=== PATIENT | female | born 1950 | race Caucasian/White ===

== ENCOUNTER 2018-01-10 13:16 | Emergency (ER) ==
[2018-01-10 13:22] VITALS: BP 137/76; TEMP 99.5; BMI 46.6
--- NOTE | 2018-01-10 13:57 | DI ---
EXAM: Four views of the left knee HISTORY: Left knee pain post fall. COMPARISON: No right knee x-rays same day FINDINGS: Left knee arthroplasty hardware is in place. There is a small lateral osteophyte. There i s no displaced fracture or dislocation. There is no lytic or blastic lesion. Soft tissues are unrem arkable. IMPRESSION: Left knee arthroplasty hardware is intact without signs of fracture or loosening. There is no acute osseous abnormality.
--- NOTE | 2018-01-10 13:58 | DI ---
EXAM: Four views of the right knee HISTORY: Fall. COMPARISON: Left knee x-rays same day FINDINGS: Right knee arthroplasty hardware is in place. There is no signs of hardware fracture or lo osening. There is no displaced fracture. There is mild osteophyte formation throughout the right kn ee. Soft tissues are unremarkable. IMPRESSION: 1. Right arthroplasty hardware without evidence of hardware fracture or loosening. 2. Mild scattered osteoarthritis.
--- NOTE | 2018-01-10 13:58 | DI ---
Exam: Left ankle three-view. HISTORY: Fall. Findings/impressions: Three images of the left ankle demonstrate no acute fracture or dislocation. There is no osseous erosion or radiodense foreign body. There is moderate degenerative disease in th e mid foot. No focal soft tissue swelling is seen.
--- NOTE | 2018-01-10 14:33 | CT ---
EXAM: CT thoracic spine without contrast HISTORY: Fall COMPARISON: None TECHNIQUE: CT thoracic spine performed without intravenous contrast. Coronal and sagittal reformatt ed images obtained. FINDINGS: Vertebral bodies normal height. No fracture. No subluxation. Moderate multilevel chroni c discogenic degenerative disease with multilevel marginal osteophyte formation and intervertebral di sc space narrowing. Central canal grossly patent. Atherosclerosis. Granulomatous calcification. IMPRESSION: 1. No fracture or subluxation. 2. Chronic discogenic degenerative disease.
--- NOTE | 2018-01-10 14:33 | CT ---
EXAM: CT cervical spine without contrast. HISTORY: Fall COMPARISON: Same day CT thoracic spine TECHNIQUE: Serial axial images of the cervical spine were obtained from the skull base through the l gerda apices without contrast. These were viewed in multiple planes. FINDINGS: Evaluation is mildly limited due to artifact. There is moderate facet arthropathy. There is no acute compression fracture or subluxation. There is mild scattered disc space narrowing and s cattered disc osteophytes. The odontoid process is intact. The C1 ring is intact. Scattered facet a rthropathy and disc osteophytes demonstrate right C6-C7 mld neural foraminal narrowing. Soft tissues demonstrate a lobular enlarged appearance of the thyroid. IMPRESSION: 1. No acute compression fracture or subluxation. 2. 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 3. Lobular enlarged appearance of the thyroid.
--- NOTE | 2018-01-10 15:53 | ED.PDOC ---
General ED Provider: Dr. AICHA CLIFTON Chief Complaint: Hand Laceration Stated Complaint: hand laceration, neck and upper back pain after a fall Time Seen by Physician: 13:30 (see photos) Mode of Arrival: Walk-In Information Source: Patient Exam Limitations: No limitations Primary Care Provider: YANETH MOREAU Nursing and Triage Documentation Reviewed and Agree: Yes Does patient meet sepsis criteria?: No System Inflammatory Response Syndrome: Not Applicable Sepsis Protocol: For patient's 13 years and over: Temp is 96.8 and below OR 101 and greater Pulse >90 BPM Resp >20/minute Acutely Altered Mental Status Are patient's symptoms suggestive of a new infection, such as: -Pneumonia -Skin, Soft Tissue -Endocarditis -UTI -Bone, Joint Infection -Implantable Device -Acute Abdominal Infection -Wound Infection -Meningitis -Blood Stream Catheter Infection -Unknown Trauma/Injury Complaint Exam - Trauma Complaint/Exam Location of Pain or Injury: Reports: Back (thoracic), RLE (knee ), LLE (knee), Other (right hand ) Mechanism of Injury: Reports: Fall Onset/Duration: 1 week Symptoms Are: Still present Timing of Treatment: Delayed Initial Severity: Mild Current Severity: Mild Character: Reports: Aching Alleviating: Reports: Rest Associated Signs and Symptoms: Denies: LOC, Confusion, Memory loss, Lethargy, Vomiting, Bleeding, Bruising, Swelling, Extremity disuse, Painful respiration, Hoarseness, Dysphagia, Hemoptysis, Significant blood loss Related Surgical History: Reports: None Nexus Low Risk Criteria: No post-midline CS tender, No evidence of intoxicat., No Altered LOC, No focal neuro deficit, No distracting injuries Glascow Coma Scale (see protocol): 15 Compartment Syndrome Risk Factors: Absent: Pain, Paralysis, Pallor, Pulselessness, Paresthesias Skin Findings: Present: Laceration (see photos) Differential Diagnoses: Laceration Review of Systems - Review Of Systems Constitutional: Reports: No symptoms Eyes: Reports: No symptoms Ears, Nose, Mouth, Throat: Reports: No symptoms Respiratory: Reports: No symptoms Cardiac: Reports: No symptoms GI: Reports: No symptoms : Reports: No symptoms Musculoskeletal: Reports: Joint pain (right , left knee) Skin: Reports: Other (laceration right hand) Neurological: Reports: No symptoms Endocrine: Reports: No symptoms Hematologic/Lymphatic: Reports: No symptoms All Other Systems: Reviewed and Negative Past Medical History - Past Medical History Previously Healthy: Yes Endocrine: Reports: None Cardiovascular: Reports: None Respiratory: Reports: None Hematological: Reports: None Gastrointestinal: Reports: None Genitourinary: Reports: None Neuro/Psych: Reports: None Musculoskeletal: Reports: None Cancer: Reports: None Last Menstrual Period: NONE - Surgical History General Surgical History: Reports: None - Family History Family History: Reports: None - Social History Smoking Status: Current every day smoker, Light tobacco smoker Hx Substance Use: No Alcohol Screening: None - Immunizations Tetanus Shot up to Date: Yes Physical Exam - Physical Exam Appearance: Well-appearing, No pain distress, Well-nourished Eyes: SRIKANTH, EOMI, Conjunctiva clear ENT: Ears normal, Nose normal, Oropharynx normal Respiratory: Airway patent, Breath sounds clear, Breath sounds equal, Respirations nonlabored Cardiovascular: RRR, Pulses normal, No rub, No murmur GI/: Soft, Nontender, No masses, Bowel sounds normal, No Organomegaly Musculoskeletal: Normal strength, ROM intact, No edema, No calf tenderness Skin: Warm, Dry (laceration right hand ) Neurological: Sensation intact, Motor intact, Reflexes intact, Cranial nerves intact, Alert, Oriented Psychiatric: Affect appropriate, Mood appropriate Procedures - Laceration/Wound Repair No standard instances Wound Description: Linear Wound Length (cm): 2cm Wound Width: 5mm Wound Depth: 2mm Wound Explored: Clean Wound Prep: Saline, Hibiclens Anesthesia: Lidocaine (plain 5 cc) Undermining: Minimal Wound Margins: Revised, Vermilion border aligned Wound Repaired With: Sutures Suture Size and Type: 3 prolene Number of Sutures: 12 Number of Nathaly: 0 Critical Care Note - Critical Care Note Total Time (mins): 0 Course - Course Orders, Labs, Meds: Orders Category Date Time Status ANKLE, LEFT MIN 3 VIEWS Stat RADS 01/10/18 13:[address] CERVICAL SPINE W/O CONTRAST Stat RADS 01/10/18 13:[address] THORACIC SPINE W/O CONTRAST Stat RADS 01/10/18 13:28 Completed KNEE, LEFT 4 VIEWS Stat RADS 01/10/18 13:23 Completed KNEE, RIGHT 4 VIEWS Stat RADS 01/10/18 13:23 Completed Vital Signs: Temp Pulse Resp BP Pulse Ox 01/10/18 13:16 99.5 F 90 20 137/76 92 L Departure - Departure Time of Disposition: 15:56 Disposition: HOME SELF-CARE Discharge Problem: Laceration of hand Instructions: Care For Your Stitches (DC), Laceration (ED), Laceration (DC) Condition: Good Pt referred to PMD for follow-up: Yes IPMP verified?: No Additional Instructions: Please call your Family Physician as soon as possible to schedule a follow-up appointment. Allergies/Adverse Reactions: Allergies codeine Adverse Reaction (Verified 01/10/18 13:25) levofloxacin [From Levaquin] Adverse Reaction (Verified 01/10/18 13:24) DERMABOND Adverse Reaction (Uncoded 01/10/18 13:25) Home Medications: Ambulatory Orders Atorvastatin Calcium [Lipitor] 20 mg PO BEDTIME 01/10/18 Bupropion HCl [Bupropion Xl] 300 mg PO DAILY 01/10/18 Buspirone HCl 15 mg PO BID 01/10/18 Canagliflozin [Invokana] 100 mg PO DAILY 01/10/18 Diclofenac Sodium 75 mg PO BID 01/10/18 Dicyclomine HCl [Bentyl] 10 mg PO QID 01/10/18 Escitalopram Oxalate [Lexapro] 20 mg PO DAILY 01/10/18 Furosemide [Lasix Tab] 20 - 40 mg PO QDAC 01/10/18 Ipratropium/Albuterol Neb [Duoneb] 1 vial NEB RTQ6H 01/10/18 Lisinopril/Hydrochlorothiazide [Lisinopril-Hctz 10-12.5 mg Tab] 2 each PO DAILY 01/10/18 Loratadine 10 mg PO DAILY 01/10/18 Metformin HCl [Metformin HCl ER] 500 mg PO BID 01/10/18 Metoprolol Succinate [Toprol Xl] 50 mg PO DAILY 01/10/18 Montelukast Sodium [Singulair] 10 mg PO BEDTIME 01/10/18 Omeprazole [Prilosec] 20 mg PO BIDAC 01/10/18 Potassium Chloride [Klor-Con 10] 10 meq PO DAILY 01/10/18
[2018-01-10] MEDS ORDERED: LIDOCAINE HCL 1% SDV SUBCUT STA (15:55)
== END 2018-01-10 16:03 | disposition home or self-care (01) ==
LOC: ED 13:16
DX: S61.411A Laceration without foreign body of right hand, initial encounter (principal); M54.2 Cervicalgia; M54.6 Pain in thoracic spine; M25.562 Pain in left knee; M25.561 Pain in right knee; W19.XXXA Unspecified fall, initial encounter; F17.210 Nicotine dependence, cigarettes, uncomplicated
CPT/HCPCS: 99283